=== PATIENT | female | born 1945 | race Caucasian/White ===

== ENCOUNTER → 2018-09-24 07:05 | Outpatient (CLI) | payer MEDICARE, SELFPAY ==
--- NOTE | 2018-09-27 11:09 | EEG ---
- Electroencephalogram Date of service 09/24/2018 This is an 18 channel electron esophagram performed on this 73-year-old female with a history of weakness in her arms and legs as well as difficulty with speech. 18 channel electro esophagram was performed utilizing the International 10-20 electrode placement protocol as well as hyperventilation, photic stim elation and EKG reference leads. The patient remained awake throughout the recording. Background activity is 10 Hz symmetrically in the posterior leads which attenuates with eye-opening. Hyperventilation is performed for 4 minutes with good effort with no lateralizing or epileptic on changes in the postovulatory phase is unremarkable. EKG is normal sinus rhythm throughout the recording, and photic simulation generates a normal symmetric driving response in the posterior leads. Impression: Normal awake electroencephalogram
== END ==
PROVIDERS: Family Provider Internal Medicine; PCP Internal Medicine; Referring Provider Nurse Practitioner Family; Visit Provider Nurse Practitioner Family
DX: R56.9 Unspecified convulsions (principal)
CPT/HCPCS: 95819